=== PATIENT | female | born 1960 | race Caucasian/White ===

== ENCOUNTER 2018-12-13 14:13 | Outpatient (CLI) | payer BC ==
--- NOTE | 2018-12-13 15:04 | RAD ---
CHEST TWO VIEWS: History: Dyspnea. FINDINGS: Cardiac silhouette is upper limits of normal in size. Pulmonary vasculature also upper limits of norm al. Mediastinum is midline. No confluent airspace consolidation, pneumothorax, or pleural fluid are e vident. IMPRESSION: Borderline cardiomegaly and pulmonary vasculature congestion. No florid edema is evident. POS: [facility]
== END 2018-12-13 14:14 | disposition home or self-care (01) ==
LOC: BICRAD 14:13
PROVIDERS: ATTEND Family Medicine
DX: R06.09 Other forms of dyspnea (principal); Z08 Encounter for follow-up examination after completed treatment for malignant neoplasm; Z85.3 Personal history of malignant neoplasm of breast
CPT/HCPCS: 36415; 71046; 80053; 82306; 84443